=== PATIENT | female | born 1980 | race Caucasian/White ===

== ENCOUNTER 2017-05-11 19:51 | Emergency (ER) | payer BC, OTHER ==
--- NOTE | 2017-05-11 20:29 | PDOC ---
Rapid Medical Evaluation Time Seen by Provider: 05/11/17 20:25 Medical Evaluation: Allergies Allergy/AdvReac Type Severity Reaction Status Date / Time No Known Allergies Allergy Verified 07/21/15 20:36 05/11/17 20:25 I have performed a brief in-person evaluation of this patient. The patient presents with a chief complaint of: cough, runny nose, sneezing Pertinent physical exam findings: lungs ctab I have ordered the following: flu swab The patient will proceed to the ED for further evaluation.
[2017-05-11 20:30] VITALS: BP 129/79; PULSE 85; TEMP 98.2; BMI 39.9
--- NOTE | 2017-05-11 21:17 | PDOC ---
History of Present Illness - General Chief Complaint: Cold Symptoms Stated Complaint: CHEST PAIN Time Seen by Provider: 05/11/17 20:25 History Source: Patient - History of Present Illness Initial Comments: 05/11/17 22:01 36 year old female c/o nasal congestion, cough and chest pain. reports fever tmax 103 at home last night. denies NVD, abdominal pain, urinary symptoms 05/11/17 22:24 Past History - Past Medical History Allergies/Adverse Reactions: Allergies Allergy/AdvReac Type Severity Reaction Status Date / Time No Known Allergies Allergy Verified 07/21/15 20:36 Home Medications: Ambulatory Orders Albuterol Sulfate Inhaler - [Ventolin HFA Inhaler -] 1 - 2 inh PO Q4H PRN #1 inhaler 05/11/17 Azithromycin [Zithromax 250mg Tablets -] 250 mg PO UTDICT #6 tab 05/11/17 COPD: No - Immunization History Immunization Up to Date: Yes - Suicide/Smoking/Psychosocial Hx Smoking History: Never smoked Have you smoked in the past 12 months: No Information on smoking cessation initiated: No Hx Alcohol Use: No Drug/Substance Use Hx: No Substance Use Type: None Review of Systems - Review of Systems Able to Perform ROS?: Yes Is the patient limited Vietnamese proficient: No Constitutional: No: Symptoms Reported, See HPI, Chills, Diaphoresis, Fever, Loss of Appetite, Malaise, Night Sweats, Weakness, Weight Stable, Unintentional Wgt. Loss, Unexplained wgt Loss, Other HEENTM: Yes: Nose Congestion Respiratory: Yes: Cough Cardiac (ROS): Yes: Chest Pain *Physical Exam - Vital Signs Last Vital Signs Temp Pulse Resp BP Pulse Ox 98.2 F 85 20 129/79 100 05/11/17 20:26 05/11/17 20:26 05/11/17 20:26 05/11/17 20:26 05/11/17 20:26 - Physical Exam General Appearance: Yes: Appropriately Dressed HEENT: positive: Tonsillar Erythema (+ b/l tonisilary edema. no exudate) Respiratory/Chest: positive: Rhonchi Cardiovascular: positive: Regular Rhythm, Regular Rate Gastrointestinal/Abdominal: positive: Normal Bowel Sounds, Soft Musculoskeletal: positive: Normal Inspection Extremity: positive: Normal Capillary Refill, Normal Inspection, Normal Range of Motion Integumentary: positive: Normal Color, Dry, Warm Neurologic: positive: Fully Oriented, Alert, Normal Mood/Affect ED Treatment Course - ADDITIONAL ORDERS Additional order review: 05/11/17 20:43 Influenza Types A,B Antigen (TATIANA) - Preliminary Nasopharyngeal Swab - Preliminary Progress Note - Progress Note Progress Note: A: bronchitis P: duoneb ibuprofen chest xray *DC/Admit/Observation/Transfer Diagnosis at time of Disposition: Acute bronchitis Qualifiers: Bronchitis organism: unspecified organism Qualified Code(s): J20.9 - Acute bronchitis, unspecified - Discharge Dispostion Disposition: HOME - Prescriptions Prescriptions: Albuterol Sulfate Inhaler - [Ventolin HFA Inhaler -] 1 - 2 inh PO Q4H PRN #1 inhaler PRN Reason: Cough Azithromycin [Zithromax 250mg Tablets -] 250 mg PO UTDICT #6 tab - Referrals Referrals: Cayden Youngblood [Primary Care Provider] - - Patient Instructions Printed Discharge Instructions: DI for Acute Bronchitis Additional Instructions: drink plenty of fluids take tylenol every 6 hours as needed for fever follow up with your doctor as soon as possible. take azithromycin as prescribed. return to the ER if symptoms worsen. - Post Discharge Activity Forms/Work/School Notes: Back to Work
[2017-05-11] MEDS ORDERED: ALBUTEROL SO4 2.5/IPRATROPIUM 0.5 INH SOL 3 ML VIAL.NEB. NEB ONE ×2 (21:18→21:25)
[2017-05-11] MEDS ORDERED: IBUPROFEN 600 MG TABLET (FP) PO ONE ×2 (21:18→21:47)
--- NOTE | 2017-05-18 16:31 | EKG ---
Test Reason : Blood Pressure : / mmHG Vent. Rate : 084 BPM Atrial Rate : 084 BPM P-R Int : 148 ms QRS Dur : 078 ms QT Int : 394 ms P-R-T Axes : 052 014 041 degrees QTc Int : 465 ms NORMAL SINUS RHYTHM NORMAL ECG WHEN COMPARED WITH ECG OF 10-OCT-2008 08:16, BORDERLINE CRITERIA FOR INFERIOR INFARCT ARE NO LONGER PRESENT T WAVE INVERSION NO LONGER EVIDENT IN INFERIOR LEADS Confirmed by JAN POSEY, MARIE ([id number]) on 05/18/2017 4:31:16 PM Referred By: Confirmed By:MARIE MONTOYA MD
== END 2017-05-11 22:31 | disposition home or self-care (01) ==
LOC: JERFT 19:51
PROC: 3E0F7GC Introduction of Other Therapeutic Substance into Respiratory Tract, Via Natural or Artificial Opening (ICD-10-PCS; principal; 2017-05-11)
DX: J02.9 Acute pharyngitis, unspecified (principal)
CPT/HCPCS: 71020-TC; 84703; 87070; 87077; 87430; 87804; 93005; 93010; 99281-25

== ENCOUNTER 2020-09-24 09:32 | Day surgery (SDC) | payer OTHER ==
[2020-09-24] MEDS ORDERED: IRON SUCROSE INJECTION 200 MG in SODIUM CHLORIDE 100 ML IVPB ONE (10:00)
[2020-09-24 15:37] VITALS: TEMP 98.4
[2020-09-24 15:38] VITALS: BP 135/85; PULSE 71
== END 2020-09-24 11:30 | disposition home or self-care (01) ==
LOC: JONCNONCHE 09:32
PROVIDERS: ATTEND Internal Medicine Hematology & Oncology
PROC: 3E033GC Introduction of Other Therapeutic Substance into Peripheral Vein, Percutaneous Approach (ICD-10-PCS; principal; 2020-09-24)
DX: D50.9 Iron deficiency anemia, unspecified (principal)
CPT/HCPCS: 96365; J1756

== ENCOUNTER 2020-10-01 07:30 | Day surgery (SDC) | payer OTHER ==
[2020-10-01] MEDS ORDERED: IRON SUCROSE INJECTION 200 MG in SODIUM CHLORIDE 100 ML IVPB ONE (10:00)
[2020-10-01 17:06] VITALS: TEMP 98.5
[2020-10-01 17:09] VITALS: BP 133/85; PULSE 76
== END 2020-10-01 10:50 | disposition home or self-care (01) ==
LOC: JONCNONCHE 07:30
PROVIDERS: ATTEND Internal Medicine Hematology & Oncology
PROC: 3E033GC Introduction of Other Therapeutic Substance into Peripheral Vein, Percutaneous Approach (ICD-10-PCS; principal; 2020-10-01)
DX: D50.9 Iron deficiency anemia, unspecified (principal)
CPT/HCPCS: 96365; J1756

== ENCOUNTER 2020-10-08 07:08 | Day surgery (SDC) | payer OTHER ==
[2020-10-08] MEDS ORDERED: IRON SUCROSE INJECTION 200 MG in SODIUM CHLORIDE 100 ML IVPB ONE (10:00)
[2020-10-08 12:02] VITALS: BP 127/77; PULSE 65; TEMP 98.6
== END 2020-10-08 10:40 | disposition home or self-care (01) ==
LOC: JONCNONCHE 07:08
PROVIDERS: ATTEND Internal Medicine Hematology & Oncology
PROC: 3E033GC Introduction of Other Therapeutic Substance into Peripheral Vein, Percutaneous Approach (ICD-10-PCS; principal; 2020-10-08)
DX: D50.9 Iron deficiency anemia, unspecified (principal)
CPT/HCPCS: 96365; J1756

== ENCOUNTER 2020-10-15 07:10 | Day surgery (SDC) | payer OTHER ==
[2020-10-15] MEDS ORDERED: IRON SUCROSE INJECTION 200 MG in SODIUM CHLORIDE 100 ML IVPB ONE (10:00)
[2020-10-15 13:20] VITALS: TEMP 98.2
[2020-10-15 14:41] VITALS: BP 128/77; PULSE 69
== END 2020-10-15 10:40 | disposition home or self-care (01) ==
LOC: JONCNONCHE 07:10
PROVIDERS: ATTEND Internal Medicine Hematology & Oncology
PROC: 3E033GC Introduction of Other Therapeutic Substance into Peripheral Vein, Percutaneous Approach (ICD-10-PCS; principal; 2020-10-15)
DX: D50.9 Iron deficiency anemia, unspecified (principal)
CPT/HCPCS: 96365; J1756

== ENCOUNTER 2021-07-05 06:55 | Day surgery (SDC) | payer OTHER ==
[2021-07-05] MEDS ORDERED: IRON SUCROSE INJECTION 200 MG in SODIUM CHLORIDE 100 ML IVPB ONE (10:00)
[2021-07-05 16:19] VITALS: TEMP 98.5
[2021-07-05 16:25] VITALS: BP 143/82; PULSE 65
== END 2021-07-05 10:20 | disposition home or self-care (01) ==
LOC: JONCNONCHE 06:55
PROVIDERS: ATTEND Internal Medicine Hematology & Oncology
PROC: 3E033GC Introduction of Other Therapeutic Substance into Peripheral Vein, Percutaneous Approach (ICD-10-PCS; principal; 2021-07-05)
DX: D50.9 Iron deficiency anemia, unspecified (principal)
CPT/HCPCS: 96365; J1756

== ENCOUNTER 2021-07-12 06:47 | Day surgery (SDC) | payer OTHER ==
[2021-07-12] MEDS ORDERED: IRON SUCROSE INJECTION 200 MG in SODIUM CHLORIDE 100 ML IVPB ONE (09:00)
[2021-07-12 15:39] VITALS: BP 135/92; PULSE 72; TEMP 98.1
== END 2021-07-12 10:55 | disposition home or self-care (01) ==
LOC: JONCNONCHE 06:47
PROVIDERS: ATTEND Internal Medicine Hematology & Oncology
PROC: 3E033GC Introduction of Other Therapeutic Substance into Peripheral Vein, Percutaneous Approach (ICD-10-PCS; principal; 2021-07-12)
DX: D50.9 Iron deficiency anemia, unspecified (principal)
CPT/HCPCS: 96365; J1756

== ENCOUNTER 2021-07-20 06:52 | Day surgery (SDC) | payer OTHER ==
[2021-07-20] MEDS ORDERED: IRON SUCROSE INJECTION 200 MG in SODIUM CHLORIDE 100 ML IVPB ONE (10:00)
[2021-07-20 10:03] VITALS: TEMP 98.6
[2021-07-20 10:33] VITALS: BP 118/75; PULSE 94
== END 2021-07-20 10:38 | disposition home or self-care (01) ==
LOC: JONCNONCHE 06:52
PROVIDERS: ATTEND Internal Medicine Hematology & Oncology
PROC: 3E033GC Introduction of Other Therapeutic Substance into Peripheral Vein, Percutaneous Approach (ICD-10-PCS; principal; 2021-07-20)
DX: D50.9 Iron deficiency anemia, unspecified (principal)
CPT/HCPCS: 96365; J1756

== ENCOUNTER 2021-07-26 06:25 | Day surgery (SDC) | payer OTHER ==
[2021-07-26] MEDS ORDERED: IRON SUCROSE INJECTION 200 MG in SODIUM CHLORIDE 100 ML IVPB ONE (10:00)
[2021-07-26 16:29] VITALS: BP 149/93; PULSE 69; TEMP 98.3
== END 2021-07-26 16:31 | disposition home or self-care (01) ==
LOC: JONCNONCHE 06:25
PROVIDERS: ATTEND Internal Medicine Hematology & Oncology
PROC: 3E033GC Introduction of Other Therapeutic Substance into Peripheral Vein, Percutaneous Approach (ICD-10-PCS; principal; 2021-07-26)
DX: D50.9 Iron deficiency anemia, unspecified (principal)
CPT/HCPCS: 96365; J1756

== ENCOUNTER 2022-08-29 08:42 | Day surgery (SDC) | payer OTHER ==
[2022-08-29] MEDS ORDERED: CYANOCOBALAMIN (VITAMIN B-12) 1000 MCG/1 ML VIAL IM ONE (10:00)
[2022-08-29] MEDS ORDERED: IRON SUCROSE INJECTION 300 MG in SODIUM CHLORIDE 250 ML IVPB ONE (10:00)
[2022-08-29 10:11] LABS: EPI CELLS >36 /uL (0-25.1); HYALINE CASTS 2 /uL (0-3.1); PH,URINE 5.5 (5.0-8.0); URINE APPEARANCE CLEAR; URINE BACTERIA 94 /uL (0-1359); URINE BILIRUBIN NEGATIVE (NEGATIVE); URINE COLOR YELLOW; URINE GLUCOSE (UA) NEGATIVE (NEGATIVE); URINE KETONE NEGATIVE (NEGATIVE); URINE LEUK ESTERASE NEGATIVE (NEGATIVE); URINE NITRITE NEGATIVE (NEGATIVE); URINE PROTEIN NEGATIVE (NEGATIVE); URINE RBC 22 /uL (0-23.9); URINE WBC 12 /uL (0-25.8)
[2022-08-29 16:22] VITALS: BP 138/83; PULSE 72; RESP 20; TEMP 98.2
== END 2022-08-29 11:05 | disposition home or self-care (01) ==
LOC: JONCNONCHE 08:42
PROVIDERS: ATTEND Internal Medicine Hematology & Oncology
PROC: 3E033GC Introduction of Other Therapeutic Substance into Peripheral Vein, Percutaneous Approach (ICD-10-PCS; principal; 2022-08-29)
DX: D50.9 Iron deficiency anemia, unspecified (principal)
CPT/HCPCS: 81003; 96365; J1756

== ENCOUNTER 2022-09-05 09:23 | Day surgery (SDC) | payer OTHER ==
[~2022-09-05 09:23] MED LIST: CYANOCOBALAMIN (VITAMIN B-12) 1000 MCG/1 ML VIAL IM ONE
[2022-09-05] MEDS ORDERED: IRON SUCROSE INJECTION 300 MG in SODIUM CHLORIDE 250 ML IVPB ONE (10:00)
[2022-09-05 14:50] VITALS: BP 140/85; PULSE 73; RESP 19; TEMP 98.6
== END 2022-09-05 11:45 | disposition home or self-care (01) ==
LOC: JONCNONCHE 09:23
PROVIDERS: ATTEND Internal Medicine Hematology & Oncology
PROC: 3E033GC Introduction of Other Therapeutic Substance into Peripheral Vein, Percutaneous Approach (ICD-10-PCS; principal; 2022-09-05)
DX: D50.9 Iron deficiency anemia, unspecified (principal)
CPT/HCPCS: 96365; J1756

== ENCOUNTER 2022-09-12 16:30 | Day surgery (SDC) | payer OTHER ==
[~2022-09-12 16:30] MED LIST changes: +IRON SUCROSE INJECTION 300 MG in SODIUM CHLORIDE 250 ML IVPB ONE
[2022-09-12 18:35] VITALS: BP 155/93; PULSE 76; RESP 18; TEMP 98.2
== END 2022-09-12 18:40 | disposition home or self-care (01) ==
LOC: JONCNONCHE 16:30
PROVIDERS: ATTEND Internal Medicine Hematology & Oncology
PROC: 3E033GC Introduction of Other Therapeutic Substance into Peripheral Vein, Percutaneous Approach (ICD-10-PCS; principal; 2022-09-12)
DX: D50.9 Iron deficiency anemia, unspecified (principal)
CPT/HCPCS: 96365; J1756

== ENCOUNTER 2022-09-19 08:39 | Day surgery (SDC) | payer OTHER ==
[2022-09-19] MEDS ORDERED: CYANOCOBALAMIN (VITAMIN B-12) 1000 MCG/1 ML VIAL IM ONE (10:00)
[2022-09-19] MEDS ORDERED: IRON SUCROSE INJECTION 300 MG in SODIUM CHLORIDE 250 ML IVPB ONE (10:00)
[2022-09-19 16:32] VITALS: BP 145/95; PULSE 70; RESP 19; TEMP 98.6
== END 2022-09-19 11:30 | disposition home or self-care (01) ==
LOC: JONCNONCHE 08:39
PROVIDERS: ATTEND Internal Medicine Hematology & Oncology
PROC: 3E033GC Introduction of Other Therapeutic Substance into Peripheral Vein, Percutaneous Approach (ICD-10-PCS; principal; 2022-09-19)
DX: D50.9 Iron deficiency anemia, unspecified (principal)
CPT/HCPCS: 96365; J1756